=== PATIENT | male | born 1975 | race Hispanic/Latino ===

== ENCOUNTER 2017-04-12 02:51 | Emergency (ER) | payer OTHER ==
[2017-04-12 03:17] VITALS: BP 133/85; PULSE 78; RESP 16; TEMP 98; O2SAT 100
--- NOTE | 2017-04-12 03:43 | ED PDOC ---
HPI: Skin/Bite Injury Time Seen by Provider: 04/12/17 03:11 Chief Complaint (Nursing): Abnormal Skin Integrity Chief Complaint (Provider): laceration History Per: Patient History/Exam Limitations: no limitations Additional Complaint(s): 42yo M in ED for eval of laceration sustained above right eyebrow 7 hrs [employer]- states that he was injured while playing basketball by another players head into right side of face. Pt states that he did not LOC, no headache, no dizziness no vision change no pain with eye moven't no photophobia no nausea no vomiting. Past Medical History Reviewed: Historical Data, Nursing Documentation, Vital Signs Vital Signs: Last Vital Signs Temp 98.0 F 04/12/17 03:15 Pulse 78 04/12/17 03:15 Resp 16 04/12/17 03:15 BP 133/85 04/12/17 03:15 Pulse Ox 100 04/12/17 03:15 - Medical History PMH: No Chronic Diseases - Family History Family History: States: No Known Family Hx - Home Medications Home Medications: Ambulatory Orders Medication Instructions Recorded Penicillin V Potassium [Pen-Vee K] 500 mg PO Q6 #20 tab 05/29/15 - Allergies Allergies/Adverse Reactions: Allergies Allergy/AdvReac Type Severity Reaction Status Date / Time No Known Allergies Allergy Verified 06/03/15 23:06 Review of Systems ROS Statement: Except As Marked, All Systems Reviewed And Found Negative Eyes: Positive for: Eyelid Inflammation, Other (laceration) Physical Exam - Reviewed Nursing Documentation Reviewed: Yes Vital Signs Reviewed: Yes - Physical Exam Appears: Positive for: Well, Non-toxic, No Acute Distress Head Exam: Positive for: NORMOCEPHALIC. Negative for: ATRAUMATIC, NORMAL INSPECTION Skin: Positive for: Normal Color, Warm, DRY Eye Exam: Positive for: EOMI, PERRL, Other (laceration above right eye- surronding swelling no step off very miminal tenderness to eye orbit. no hypehma no subconjitval hemmorrage . laceration nolonger bleeding 1cm in length ) ENT: Positive for: Normal ENT Inspection, Other (no jaw pain ) Neck: Positive for: Normal, Painless ROM Cardiovascular/Chest: Positive for: Regular Rate, Rhythm Respiratory: Positive for: CNT, Normal Breath Sounds Neurologic/Psych: Positive for: Alert, Oriented - ECG O2 Sat by Pulse Oximetry: 100 Medical Decision Making Medical Decision Making: laceration irrigated with NS and fixed with dermabond. no indication for CT of maxillofacial bones-pt has no tenderness and nonpainful EOM however advised if the severe pain to return to ED Disposition - Clinical Impression Clinical Impression: Eyelid laceration - Patient ED Disposition Is Patient to be Admitted: No Counseled Patient/Family Regarding: Diagnosis, Need For Followup - Disposition Disposition: Routine/Home Disposition Time: 03:48 Condition: STABLE Instructions: Skin Adhesive Care (ED)
== END 2017-04-12 03:55 | disposition home or self-care (01) ==
LOC: H.ER 02:51
DX: S01.111A Laceration without foreign body of right eyelid and periocular area, initial encounter (principal); W22.8XXA Striking against or struck by other objects, initial encounter; Y93.67 Activity, basketball